=== PATIENT | female | born 1980 | race American Indian/Alaskan Native ===

== ENCOUNTER 2022-04-11 21:02 | Emergency (ER) | payer MEDICAID ==
[2022-04-11 21:32] VITALS: BP 103/62
== END 2022-04-12 13:53 | disposition left against medical advice (07) ==
LOC: ED 21:02
DX: R42 Dizziness and giddiness (principal); Z53.21 Procedure and treatment not carried out due to patient leaving prior to being seen by health care provider; R10.9 Unspecified abdominal pain

== ENCOUNTER 2022-04-13 14:21 | Emergency (ER) | payer MEDICAID ==
[2022-04-13 14:56] VITALS: BP 132/52
[2022-04-13 15:54] LABS: Basophils % (Auto) 0.3 % (0.0-1.8); Eosinophils % (Auto) 0.5 % (0.0-4.3); Lymphocytes # (Auto) 0.9 K/mm3 (1.2-5.4); Lymphocytes % (Auto) 14.4 % (13.4-35.0); Mean Corpuscular HGB Conc 30 % (30-34); Monocytes # (Auto) 0.5 K/mm3 (0.0-0.8); Monocytes % (Auto) 6.9 % (0.0-7.3); Platelet Count 391 K/mm3 (140-440); Red Cell Distribution Width 19.8 % (13.2-15.2)
[2022-04-13 16:08] LABS: Hematocrit 30.6 % (30.3-42.9)
[2022-04-13 16:09] LABS: Mean Corpuscular Volume 66 fl (79-97)
[2022-04-13] MEDS ORDERED: MORPHINE 4 MG/1 ML INJ IM ONE (16:20)
[2022-04-13] MEDS ORDERED: ONDANSETRON 4 MG ODT TAB PO ONE (16:20)
[2022-04-13 16:49] LABS: Alanine Aminotransferase 9 units/L (7-56); Albumin 3.8 g/dL (3.9-5); BUN/Creatinine Ratio 11; Blood Urea Nitrogen 10 mg/dL (7-17); Calcium 9.1 mg/dL (8.4-10.2); Hemolysis Index 0
[2022-04-13 16:58] LABS: Mucus,Urine 2+ /HPF
[2022-04-13 17:02] LABS: Color,Urine Yellow (Yellow)
[2022-04-13 17:03] LABS: Bilirubin,Urine Small (Negative); Blood,Urine Large (Negative)
[2022-04-13 17:23] LABS: WBC,Urine > 182.0 /HPF (0.0-6.0)
[2022-04-13 17:24] LABS: HCG Qualitative,Urine Negative (Negative)
[2022-04-13] MEDS ORDERED: LIDOCAINE-MPF (1%) 10 MG/1 ML VIAL 5 ML INFILTRATI ONE (17:29)
[2022-04-13] MEDS ORDERED: KETOROLAC 10 MG TAB PO ONE (17:29)
[2022-04-13 17:33] LABS: Ictotest,Urine Negative (Negative)
--- NOTE | 2022-04-13 17:35 | Emergency Department Report ---
ED Abdominal Pain HPI - General Chief Complaint: Abdominal Pain Stated Complaint: STOMACH PAINS, CHILLS Time Seen by Provider: 04/13/22 16:08 Source: patient Mode of arrival: Ambulatory Limitations: No Limitations - History of Present Illness Initial Comments: 41-year-old black female with no past medical history presents to the emergency department for evaluation of 4-day history of abdominal pain that radiates to her left lower back. She states that 2 days ago she had a low-grade fever that has since resolved. She also complains of dysuria but denies nausea, vomiting, dizziness, and vaginal discharge. She states that pain at its worst is 8 out of 10. MD Complaint: abdominal pain -: Gradual, days(s) (4) Location: LLQ, suprapubic Radiation: back Migration to: no migration Severity scale (0 -10): 8 Quality: cramping, aching Consistency: constant Worsens With: other (Urination) Associated Symptoms: fever, dysuria. denies: nausea, vomiting, diarrhea, chills, hematemesis, hematochezia, melena, hematuria, anorexia, syncope - Related Data LMP (females 10-50): last week Previous Rx's Medication Instructions Recorded Last Taken Type Acetaminophen/Codeine [Tylenol 1 tab PO Q6H PRN #12 tab 04/13/22 Unknown Rx /Codeine # 3 tab] Amoxicillin/K Clav Tab [Augmentin 1 tab PO BID 7 Days #14 tab 04/13/22 Unknown Rx 875 mg] Ketorolac [Toradol] 10 mg PO Q6H PRN #12 tab 04/13/22 Unknown Rx Ondansetron [Zofran Odt] 4 mg PO Q8HR PRN #12 tab.rapdis 04/13/22 Unknown Rx Allergies Allergy/AdvReac Type Severity Reaction Status Date / Time No Known Allergies Allergy Verified 04/11/22 21:32 ED Review of Systems ROS: Stated complaint: STOMACH PAINS, CHILLS Other details as noted in HPI Comment: All other systems reviewed and negative Constitutional: fever. denies: chills, malaise, weakness Eyes: denies: eye discharge, vision change ENT: denies: dental pain, congestion Respiratory: denies: shortness of breath Cardiovascular: denies: chest pain, palpitations, dyspnea on exertion, orthopnea, edema, syncope, paroxysmal nocturnal dyspnea Gastrointestinal: abdominal pain. denies: nausea, vomiting, diarrhea, hematemesis, melena, hematochezia Genitourinary: dysuria. denies: urgency, frequency, hematuria, discharge Musculoskeletal: back pain Skin: denies: rash, lesions Neurological: denies: headache, weakness Hematological/Lymphatic: denies: easy bleeding, easy bruising ED Past Medical Hx - Past Medical History Previous Medical History?: Yes Additional medical history: abd. pain - Surgical History Past Surgical History?: Yes Additional Surgical History: Tubaligation - Medications Home Medications: Home Medications Medication Instructions Recorded Confirmed Last Taken Type Acetaminophen/Codeine [Tylenol 1 tab PO Q6H PRN #12 tab 04/13/22 Unknown Rx /Codeine # 3 tab] Amoxicillin/K Clav Tab [Augmentin 1 tab PO BID 7 Days #14 tab 04/13/22 Unknown Rx 875 mg] Ketorolac [Toradol] 10 mg PO Q6H PRN #12 tab 04/13/22 Unknown Rx Ondansetron [Zofran Odt] 4 mg PO Q8HR PRN #12 tab.rapdis 04/13/22 Unknown Rx ED Physical Exam - General Limitations: No Limitations General appearance: alert, in no apparent distress - Head Head exam: Present: atraumatic, normocephalic - Eye Eye exam: Present: normal appearance. Absent: conjunctival injection, periorbital swelling, periorbital tenderness - ENT ENT exam: Present: normal exam - Neck Neck exam: Present: normal inspection, full ROM. Absent: tenderness, lymphadenopathy - Respiratory Respiratory exam: Present: normal lung sounds bilaterally. Absent: respiratory distress, wheezes, rales, rhonchi, stridor, chest wall tenderness - Cardiovascular Cardiovascular Exam: Present: regular rate, normal heart sounds - GI/Abdominal GI/Abdominal exam: Present: soft, normal bowel sounds. Absent: distended, tenderness, guarding, rebound, rigid - Extremities Exam Extremities exam: Present: normal inspection, normal capillary refill. Absent: pedal edema, joint swelling, calf tenderness - Back Exam Back exam: Present: normal inspection, CVA tenderness (L). Absent: CVA tenderness (R), vertebral tenderness - Neurological Exam Neurological exam: Present: alert, oriented X3, CN II-XII intact, normal gait - Psychiatric Psychiatric exam: Present: normal affect, normal mood - Skin Skin exam: Present: warm, dry, intact, normal color ED Course Vital Signs 04/13/22 04/13/22 14:49 17:49 Temperature 97.7 F Pulse Rate 100 H 100 H Respiratory 20 20 Rate Blood Pressure 132/52 132/52 [Right] O2 Sat by Pulse 100 100 Oximetry ED Medical Decision Making - Lab Data Result diagrams: 04/13/22 15:22 04/13/22 15:22 - Medical Decision Making 41-year-old black female with no past medical history presents to the emergency department for evaluation of 4-day history of abdominal pain that radiates to her left lower back. She states that 2 days ago she had a low-grade fever that has since resolved. She also complains of dysuria but denies nausea, vomiting, dizziness, and vaginal discharge. She states that pain at its worst is 8 out of 10. Patient noted to have CVA tenderness on exam along with urinary tract infection on UA. Patient will be treated for complicated UTI with Rocephin 1 g IM in the emergency department and discharged home on 7-day course of Augmentin along with Toradol, Tylenol 3, and Zofran to use for pain and nausea. She is advised to take medications as prescribed, increase intake of noncaffeinated fluids, and follow-up with primary care provider if no improvement or worsening symptoms. She is advised to return to the emergency department for any concerning symptoms. She verbalizes understanding of and agreement with plan of care. Critical care attestation.: If time is entered above; I have spent that time in minutes in the direct care of this critically ill patient, excluding procedure time. ED Disposition Clinical Impression: UTI (urinary tract infection) Qualifiers: Urinary tract infection type: acute cystitis Hematuria presence: with hematuria Qualified Code(s): N30.01 - Acute cystitis with hematuria Disposition: HOME / SELF CARE / HOMELESS Is pt being admited?: No Does the pt Need Aspirin: No Condition: Stable Instructions: Antibiotic Medicine, Adult, [id number], Urinary Tract Infection, Adult, [id number], Abdominal Pain (ED) Additional Instructions: Take medications as prescribed. Increase intake of noncaffeinated fluids. Follow-up with primary care provider if no improvement or worsening symptoms. Return to the emergency department as needed. Prescriptions: Amoxicillin/K Clav Tab [Augmentin 875 mg] 1 tab PO BID 7 Days #14 tab Ketorolac [Toradol] 10 mg PO Q6H PRN #12 tab PRN Reason: Pain Acetaminophen/Codeine [Tylenol /Codeine # 3 tab] 1 tab PO Q6H PRN #12 tab PRN Reason: Pain , Severe (7-10) Ondansetron [Zofran Odt] 4 mg PO Q8HR PRN #12 tab.rapdis PRN Reason: Nausea And Vomiting Referrals: HECTOR SMITH MD [Staff Physician] - 3-5 Days Forms: Work/School Release Form(ED) Time of Disposition: 17:35
== END 2022-04-13 17:55 | disposition home or self-care (01) ==
LOC: ED 14:21
DX: N39.0 Urinary tract infection, site not specified (principal); Z98.890 Other specified postprocedural states
CPT/HCPCS: 36415; 80053; 81001; 81025; 85025; 96372; 99283; J0696; J2270; J3490; Q0162